=== PATIENT | male | born 1965 | race Caucasian/White ===

== ENCOUNTER 2019-11-08 20:08 | Inpatient (IN) | payer MEDICARE ==
[~2019-11-08] VITALS: Ht 165.1 cm; Wt 128.8 kg
[2019-11-08 20:09] VITALS: BP 120/96
[2019-11-08] MEDS ORDERED: LISINOPRIL40 MG PO (20:15)
[2019-11-08] MEDS ORDERED: IBUPROFEN 800800 M1 PO (20:15)
[2019-11-08] MEDS ORDERED: ZOCOR20 MG PO (20:16)
[2019-11-08] MEDS ORDERED: NEURONTIN 300M300 M2 PO (20:16)
[2019-11-08] MEDS ORDERED: NOVOLOG FL100 UNIT/M SUBQ (20:18)
[2019-11-08] MEDS ORDERED: LANTUS SOL100 UNIT/1 SUBQ (20:18)
[2019-11-08 20:55] LABS: ABSOLUTE BASOPHILS 0.1 thou/uL (0.0-0.2); ABSOLUTE EOSINOPHILS 0.3 thou/uL (0.0-0.7); ABSOLUTE LYMPHOCYTES 2.9 thou/uL (0.8-5.3); ABSOLUTE MONOCYTES 0.9 thou/uL (0.0-1.2); ABSOLUTE NEUTROPHILS 11.1 thou/uL (1.6-8.1); BASOPHILS 0.8 %; EOSINOPHILS 1.7 %; HEMATOCRIT 47.1 % (42.0-52.0); LYMPHOCYTES 18.8 %; MCH 29.1 pg (26.0-34.0); MCHC 33.9 g/dL (28.0-37.0); MCV 85.7 fL (80.0-100.0); MPV 10.3 fl. (7.2-11.1); NUCLEATED RBCS 0 /100WBC; PLATELET COUNT* 208 thou/uL (150-400); POLYS 72.7 %; RBC 5.49 mil/uL (4.50-6.00); RDW-CV 15.4 % (10.5-14.5); WBC 15.2 thou/uL (4.0-11.0)
[2019-11-08 20:57] LABS: BE -2.5 mmol/L (-2 to +3); PCO2 32.3 mmHg (35.0-45.0); PO2 86.5 mmHg (75.0-100.0); pH 7.424 (7.340-7.450)
[2019-11-08 21:00] LABS: PROTIME 9.9 Seconds (9.20-11.50)
[2019-11-08 21:14] LABS: CALCIUM 9.5 mg/dL (8.5-10.1); CREATININE 3.2 mg/dL (0.6-1.3); POTASSIUM 4.6 mmol/L (3.5-5.1)
[2019-11-08 21:20] LABS: ALBUMIN 3.5 g/dL (3.4-5.0); MAGNESIUM 2.1 mg/dL (1.8-2.4); TOTAL BILIRUBIN 0.3 mg/dL (<0.1-1.0); TOTAL PROTEIN 7.5 g/dL (6.4-8.2)
[2019-11-09] VITALS (26 sets, daily range): BP systolic 72–148; BP diastolic 38–83
[2019-11-09 02:25] LABS: URINE BILIRUBIN NEGATIVE (Negative); URINE BLOOD TRACE (Negative); URINE CLARITY CLEAR; URINE COLOR YELLOW; URINE GLUCOSE-RANDOM 3+ (Negative); URINE KETONES NEGATIVE (Negative); URINE LEUKOCYTES-REFLEX NEGATIVE (Negative); URINE NITRITE-REFLEX NEGATIVE (Negative); URINE PROTEIN TRACE (Negative); URINE SPECIFIC GRAVITY 1.015 (1.005-1.030); URINE UROBILINOGEN 0.2 E.U./dl (0.2-1.0)
--- NOTE | 2019-11-09 05:16 | NUR ---
RECIEVED PT FROM ER PAST MIDNIGHT, ON NC AT 2LPM AND TOLERATED. BP WAS SOFT, MAP AT 60. PT DIDN'T GIVE ANY AUTHORIZED SCUBA INSTRUCTOR. ACCORDING TO HIM , HE WILL CONTACT THEM. PT CAME WAS SLEEPY BUT ORIENTED. GAVE HIM SOME WATER AND MILK, NO NAUSEA AND NO VOMITING NOTED. PT WAS A MOUTH BREATHER WHEN ASLEEP, OBESE AND USED CANE AT HOME. CONTINUE MONITORING AND TOWARD GOALS.
[2019-11-09 08:01] LABS: CALCIUM 8.6 mg/dL (8.5-10.1); MAGNESIUM 1.9 mg/dL (1.8-2.4); POTASSIUM 4.1 mmol/L (3.5-5.1)
--- NOTE | 2019-11-09 14:45 | EKG ---
[place] [address] ELECTROCARDIOGRAM REPORT Name: SHANNONSHAUNA Room: [address] ADM IN M.R.#: [id number] Admission: 11/08/19 Attend Phys: Nilo Rodriguez Discharge: Date of : 65 Date of Service: 11/08/192032 Report #: [id number] THIS REPORT FOR: //name// [facility] ED Test Date: 2019-11-08 Test Time: 20:33:37 Pat Name: SHAUNA ORTEGA Department: Room: [facility] Gender: M Customer Service Assistant: : 1965 Requested By: Leanne Ramsay Order Number: [id number] MD: Fernandez Thao Measurements Intervals [place] Rate: 122 P: 53 ND: 119 QRS: 57 QRSD: 81 T: 34 QT: 311 QTc: 443 Interpretive Statements Sinus tachycardia Low voltage, precordial leads No previous ECG available for comparison Electronically Signed On 11-09-2019 14:44:16 CDT by Fernandez Thao [email or web address] <ELECTRONICALLY SIGNED> By: Fernandez Thao MD, [facility] 11/09/19 1444 32 32 Fernandez Thao MD, [facility] /EPI
--- NOTE | 2019-11-09 19:17 | NUR ---
PT ASSESSMENT CHARTED. BP UP AND DOWN THROUGHOUT THE SHIFT. PT REQUIRES 2L NC WHILE SLEEPING. PT DROWSY BUT ARROUSABLE THROUGHOUT SHIFT. UP TO CHAIR FOR LUNCH AND A BATH. ACHS ACCUCHECKS. REPORTS OF PAIN IN NECK AND BACK 3-5 WITH RELIEF FROM REPOSITION AND SCHEDULED MEDICATION. NO OTHER COMPLAINTS DURING THIS SHIFT. AUTHORIZED CONTACT UPDATED.
[2019-11-10] VITALS (18 sets, daily range): BP systolic 80–147; BP diastolic 48–80
--- NOTE | 2019-11-10 04:24 | NUR ---
ASSUMED CARE AT 1910H, ON NC AT 2LPM. PT CAN TOLERATE RA BUT WHEN ASLEEP NEEDED 02. PT WAS ALWAYS HUNGRY, FOOD GIVEN. PT USED THE COMMODE, NO DIZZINESS NOTED. BP WAS SOFT WHEN SLEEPING. CONTINUE MONITORING AND TOWARD GOALS.
[2019-11-10 05:29] LABS: HEMATOCRIT 40.8 % (42.0-52.0); MCH 29.3 pg (26.0-34.0); MCHC 34.3 g/dL (28.0-37.0); MCV 85.4 fL (80.0-100.0); MPV 9.7 fl. (7.2-11.1); RBC 4.78 mil/uL (4.50-6.00); WBC 9.1 thou/uL (4.0-11.0)
[2019-11-10 05:37] LABS: CALCIUM 8.9 mg/dL (8.5-10.1); MAGNESIUM 2.1 mg/dL (1.8-2.4); POTASSIUM 4.9 mmol/L (3.5-5.1)
[2019-11-10 05:38] LABS: CREATININE 1.8 mg/dL (0.6-1.3)
--- NOTE | 2019-11-10 15:54 | NUR ---
PT ASSESSMENT CHARTED. VSS. REPORT GIVEN TO TELE NURSE AND WILL TRANSFER TO 215 VIA WHEELCHAIR. NO COMPLAINTS DURING THIS SHIFT.
--- NOTE | 2019-11-10 16:00 | NUR ---
CALLED PT.IN ROOM. JUST TRANSFERRED OUT OF ICU. PT.SAID HE DIDN'T REALLY FEEL LIKE TALKING AT THIS TIME. APPEARS TO BE POSSIBLY NON COMPLIANT WITH CHECKING BLD SUGARS AT HOME, TAKING HIS MEDS,ETC. DOES NOT HAVE A PCP LISTED. CM WILL CALL AGAIN IN AM.
--- NOTE | 2019-11-10 19:12 | NUR ---
REPORT GIVEN TO DORIS GRIFFITH. PT'S BED DEEM TO BE MALFUNCTIONING, INSTRUCT DORIS AND PEDRO LUIS TO TRY AND FIND A NEW BED WHEN POSSIBLE.
[2019-11-11] VITALS: BP 94/52
[2019-11-11 04:00] VITALS: BP 126/72
--- NOTE | 2019-11-11 04:55 | NUR ---
PT AWAKE MOST OF SHIFT. ASSESSMENT DOCUMENTED. MEDS GIVEN PER E-MAR. IJ PATENT. TYLENOL GIVEN PER E-MAR FOR A HEADACHE. PT ATE MULTIPLE SNACKS THIS SHIFT, PT EDUCATED ON SIZE OF SNACKS. WILL CONTINUE WITH PLAN OF CARE.
[2019-11-11 08:45] VITALS: BP 124/80
[2019-11-11 12:07] VITALS: BP 128/79
--- NOTE | 2019-11-11 15:39 | NUR ---
CM unable to reach Pt via room phone and no answer on mom's phone. Per Dr, Pt's glucose up, Pt has a headache and is nauseated today. CM to attempt to assess tomorrow.
[2019-11-11 16:18] VITALS: BP 127/71
--- NOTE | 2019-11-11 17:41 | NUR ---
PATIENT UP TO CHAIR THIS SHIFT FROM MORNING INTO AFTERNOON. UP WITH SBA. CENTRAL LINE REMAINS SL, FLUSHING WITHOUT DIFFICULTY. INSULIN GIVEN WITH ALL MEALS ORDERED, BLOOD SUGARS ELEVATED AT BREAKFAST AND LUNCH BUT LEVELING OUT AT DINNER. PATIENT ASKING FOR FREQUENT SNACKS, EDUCATED ON BLOOD SUGARS AND HEALTHY SNACKS. PATIENT HOPING TO GO HOME SOON.
[2019-11-11 19:50] VITALS: BP 128/77
[2019-11-12 00:20] VITALS: BP 113/68
[2019-11-12 04:15] LABS: HEMATOCRIT 43.5 % (42.0-52.0); HEMOGLOBIN 14.8 gm/dL (14.0-18.0); MCHC 34.1 g/dL (28.0-37.0); MCV 85.2 fL (80.0-100.0); MPV 9.3 fl. (7.2-11.1); NUCLEATED RBCS 0 /100WBC; PLATELET COUNT* 156 thou/uL (150-400); RDW-CV 14.5 % (10.5-14.5); WBC 10.7 thou/uL (4.0-11.0)
[2019-11-12 04:29] VITALS: BP 104/45
--- NOTE | 2019-11-12 04:38 | NUR ---
ASSUMED CARE OF PT AT 1900. PT IS ALERT AND ORIENTED. VSS. PERRLA. NO COMPLAINTS OF PAIN. PT IS UP AD LAURO. PT IS IN SINUS RYTHM ON THE TELEMETRY. PT IS RESTING COMFORTABLY IN BED. RESPIRATIONS ARE EVEN AND NONLABORED. WILL CONTINUE TO MONITOR PT.
[2019-11-12 04:51] LABS: ALBUMIN 2.9 g/dL (3.4-5.0); CALCIUM 8.7 mg/dL (8.5-10.1); CREATININE 1.2 mg/dL (0.6-1.3); TOTAL BILIRUBIN 0.3 mg/dL (<0.1-1.0); TOTAL PROTEIN 6.6 g/dL (6.4-8.2)
[2019-11-12 07:14] LABS: ABSOLUTE BASOPHILS 0.1 thou/uL (0.0-0.2); ABSOLUTE EOSINOPHILS 0.6 thou/uL (0.0-0.7); ABSOLUTE LYMPHOCYTES 4.7 thou/uL (0.8-5.3); ABSOLUTE MONOCYTES 0.5 thou/uL (0.0-1.2); ABSOLUTE NEUTROPHILS 4.7 thou/uL (1.6-8.1); PLATELET ESTIMATE ADEQUATE
[2019-11-12 07:40] VITALS: BP 116/65
[2019-11-12 10:53] VITALS: BP 116/65
--- NOTE | 2019-11-12 12:50 | NUR ---
PATIENT DISCHARGED TO HOME AT THIS TIME. UP WITH SBA NO DIFFICULTY NOTED. TYLENOL GIVEN X 1 THIS AM FOR HEADACHE. CENTRAL LINE DC'D FOR DISCHARGE, NO BLEEDING NOTED. INSULIN GIVEN WITH MEALS ORDERED. VERBALIZES UNDERSTANDING OF PAPERWORK, NO SCRIPTS. PATIENT TAKEN OUT VIA WHEELCHAIR WITH ALL BELONGINGS.
[2019-11-13 02:09] LABS: GLYCOHEMOGLOBIN (HGB A1C) 12.3 % (4.8-5.6)
== END 2019-11-12 12:52 | disposition home or self-care (01) | DRG 871 ==
LOC: M.ERS 20:08 → M.ICU 21:36 → M.TBA-ER 21:36 → M.2W 21:36 → M.ICU 23:52 → M.2W 11-10 16:26
PROVIDERS: Internal Medicine; Nurse Practitioner; Personal Emergency Response Attendant; ADMIT Internal Medicine
PROC: 02HV33Z Insertion of Infusion Device into Superior Vena Cava, Percutaneous Approach (ICD-10-PCS; principal; 2019-11-08)
DX: A41.9 Sepsis, unspecified organism (principal); E11.01 Type 2 diabetes mellitus with hyperosmolarity with coma; N17.0 Acute kidney failure with tubular necrosis; G92 Toxic encephalopathy; Z68.42 Body mass index [BMI] 45.0-49.9, adult; R65.20 Severe sepsis without septic shock; E11.65 Type 2 diabetes mellitus with hyperglycemia; E66.01 Morbid (severe) obesity due to excess calories; I10 Essential (primary) hypertension; J44.9 Chronic obstructive pulmonary disease, unspecified; Z79.4 Long term (current) use of insulin; Z79.899 Other long term (current) drug therapy